=== PATIENT | male | born 1940 | race Two or more races ===

== ENCOUNTER 2016-10-01 18:23 | Emergency (ER) | payer SELFPAY ==
[2016-10-01 22:03] VITALS: BP 103/60
== END 2016-10-01 23:10 | disposition home or self-care (01) ==
LOC: ER 19:35
DX: T17.908A Unspecified foreign body in respiratory tract, part unspecified causing other injury, initial encounter (principal); T18.9XXA Foreign body of alimentary tract, part unspecified, initial encounter; G30.9 Alzheimer's disease, unspecified; F02.80 Dementia in other diseases classified elsewhere, unspecified severity, without behavioral disturbance, psychotic disturbance, mood disturbance, and anxiety; X58.XXXA Exposure to other specified factors, initial encounter; Y93.89 Activity, other specified; Y99.8 Other external cause status; Y92.89 Other specified places as the place of occurrence of the external cause; H91.90 Unspecified hearing loss, unspecified ear
CPT/HCPCS: 71010